=== PATIENT | male | born 1960 | race Caucasian/White ===

== ENCOUNTER 2025-02-19 16:22 | Emergency (ER) | payer OTHER, MEDICAID ==
[~2025-02-19] VITALS: Ht 182.9 cm; Wt 81.8 kg
[2025-02-19] MEDS: SODIUM CHLORIDE 0.9% 1,000 ML IV ONE (16:45)
--- NOTE | 2025-02-19 16:53 | ED.PDOC ---
GI ASSESSMENT HPI Comments 64-year-old male who presents to the ED via EMS for c/c of abdominal pain Patient states he has been having abdominal pain for the past 4 days and states he has been having diarrhea for the past 2 days The patient states the abdominal pain is in upper abdomen periumbilical constant nonradiating with no associated exacerbating or relieving factors Patient is that he has been having 3 loose bowel movements daily for the past 2 days and states the diarrhea started out brown but states it as since turned black after he started using Pepto-Bismol. Most recently he took Pepto-Bismol earlier today. Patient otherwise denies fever cough chills dysuria hematuria nausea or associated symptoms Patient with the ED has a noted heart rate of 111 but otherwise stable vitals in the ED Patient otherwise denies any other symptoms at this time Past medical history: Diabetes, hypertension, CKD Past surgical history: Denies Medications: Unknown Allergies: Denies Social history: denies ETOH denies tobacco use denies drug use HPI: Poor Historian. REVIEW OF SYSTEMS: CONSTITUTIONAL: Denies acute: fever, diaphoresis, chills, generalized weakness. HEAD: Denies acute: headache, photophobia Eyes: Denies acute: Double vision, vision loss, eye pain, eye discharge. EARS: Denies acute: tinnitus, hearing loss, ear discharge, ear pain, THROAT: Denies acute: sore throat, swelling, difficulty swallowing , pain with swallowing, change in voice. NECK: Denies acute: neck pain, neck swelling, stiff neck. HEART: Denies acute : chest pain, palpitations, LUNGS: Denies acute: SOB, wheezing, cough, hemoptysis ABDOMEN: Denies acute: Nausea, Vomiting, hematemesis, hematochezia SKIN: Denies acute: rash, redness, lesions, itchiness. EXTREMITIES: Denies acute: calf pain, numbness, tingling, weakness, denies pain in extremity. Denies acute: Low back pain. Neuro: Denies acute: focal neurological deficit, motor or sensory focal neurological deficit, tremors, seizure like activity, confusion, dizziness, change in mental status, loss of bowel or bladder function, cauda equina like symptoms. : Denies acute: dysuria, hematuria, flank pain, increase in urinary frequency. PSYCH: Denies acute: hallucination, suicidal ideation, homicidal ideation. PHYSICAL EXAM: General: ----mild----acute distress, awake and alert. Head: normocephalic, atraumatic. Neck: supple, trachea is midline, no swelling. Throat: Normal phonation. Eyes:, no erythema, no purulent discharge, no proptosis, no icterus. Heart: regular rate, regular rhythm, no significant murmur appreciated. Lungs: no apparent respiratory distress, Able to speak in full sentences. No wheezing, no rhonchi, no crackles. No stridors Clear to auscultation bilaterally. Abdomen: Mild generalized tender to palpation, non distended, soft, no guarding, no rebound, + bowel sounds. Neuro: Awake, Alert, oriented to name, self, situation, follows commands GCS=15. Speech is normal. Skin: no petechia, no purpura, no cyanosis, non-pale, not jaundice. Lower extremities: --no - Pitting edema no deformity, no focal swelling, no calf TTP. Makes eye contact. moves all four extremities. Face: no apparent facial droop. Ambulating in the ED independently. ED COURSE: DISCLAIMER: This medical document was created using an electronic medical record system with voice recognition software and computerized dictation system. Although this document has been carefully reviewed, there might still be some phonetic and typographical errors. Occasional wrong-word or "sound-alike" substitutions may have occurred due to the inherent limitations of voice recognition software. These areas are purely typographical due to imperfections of the software programs and do not reflect any compromise in the patient's medical care. Please read the chart carefully and recognize, using context, where these substitutions have occurred. Chief Complaint: Abdominal Pain Time Seen by MD: 17:22 Reviewed Notes: Manager Mobile Notes, Medications Allergies: Coded Allergies: NO KNOWN ALLERGIES (Unverified , 02/19/25) Information Source: Patient, Emergency Med Personnel Mode of Arrival: EMS Past Medical History Surgical History: Denies all surgeries Family History Family History: Reviewed,noncontributory to illness Social History Smoker: Non-Smoker Alcohol: Denies ETOH Use Drugs: Denies Drug Use Lives In: Home Was a procedure done? Was a procedure done?: No GI differential Dx Differential Diagnosis: Other (DDX include but not limited to diverticulitis, colitis, gastroenteritis, acute abdomen, SBO, enteritis, constipation, volvulus, appendicitis, Gallbladder disease, choledocolithiasis, ascending cholangitis, pancreatitis, intraAbdominal mass/neoplasm, hepatitis, UTI, pylonephritis, kidney stone, aneurysm, dissection, Inflammatory bowel disease, gastroparesis, ischemic bowel.) X-Ray, Labs, Meds, VS Vital Signs Date Time Temp Pulse Resp B/P (MAP) Pulse Ox O2 Delivery O2 Flow Rate FiO2 02/19/25 19:49 98 19 95 Room Air* 0 21 02/19/25 19:35 97.7 98 114/91 (99) 95 97.7 02/19/25 17:45 97.9 106 18 113/79 (90) 96 97.9 02/19/25 17:45 106 18 96 Room Air 02/19/25 16:29 98.5 111 16 121/81 95 98.5 Lab Test 02/19/25 18:46 02/19/25 18:41 02/19/25 17:15 Range/Units Sodium Level 142 136-145 mmol/L Potassium Level 4.9 3.5-5.1 mmol/L Chloride Level 108 H 98-107 mmol/L Carbon Dioxide Level 23 20-31 mmol/L Anion Gap 11 5-15 Blood Urea Nitrogen 19 9-23 mg/dL Creatinine 1.58 H 0.700-1.30 mg/dL Glomerular Filtration Rate Calc 48 >90 mL/min BUN/Creatinine Ratio 12.0 10.0-20.0 Serum Glucose 99 74-106 mg/dL Calcium Level 9.2 8.7-10.4 mg/dL Total Bilirubin 0.9 0.2-1.0 mg/dL Aspartate Amino Transferase (AST) 24 13-40 U/L Alanine Aminotransferase (ALT) 29 7-40 U/L Alkaline Phosphatase 95 46-116 U/L Total Protein 6.9 5.7-8.2 g/dL Albumin 4.2 3.2-4.8 g/dL Lipase 34 12-53 U/L Urine Color Yellow Yellow Urine Clarity Turbid H Clear Urine pH 5.5 5.0-9.0 Urine Specific [place] 1.023 1.001-1.035 Urine Protein 1+ H Negative Urine Ketones Negative Negative Urine Blood Negative Negative /uL Urine Nitrite Negative Negative Urine Bilirubin Negative Negative Urine Urobilinogen Normal Negative mg/dL Urine Leukocyte Esterase 1+ Negative /uL Urine RBC <1 0 - 3 /hpf Urine Microscopic WBC 20 H 0-3 /HPF Urine Squamous Epithelial Cells Few <5 /hpf Urine Renal Epithelial Cells Few None Seen /hpf Urine Bacteria Few H None Seen /hpf Urine Hyaline Casts Mod 0 - 2 /lpf Urine Mucus Few None Seen Urine Sperm Present None Seen /hpf Urine Glucose Normal Normal mg/dL White Blood Count 9.3 4.4-10.8 10^3/uL Red Blood Count 6.59 H 4.5-5.90 10^6/uL Hemoglobin 19.3 H 13.5-17.5 g/dL Hematocrit 56.4 H 41.0-53.0 % Mean Corpuscular Volume 85.6 80.0-100.0 fL Mean Corpuscular Hemoglobin 29.4 28.0-32.0 pg Mean Corpuscular Hemoglobin Concent 34.3 32.0-36.0 g/dL Red Cell Distribution Width 14.9 H 11.8-14.3 % Platelet Count 250 140-450 10^3/uL Mean Platelet Volume 10.2 6.9-10.8 fL Neutrophils (%) (Auto) 68.9 37.0-80.0 % Lymphocytes (%) (Auto) 21.3 10.0-50.0 % Monocytes (%) (Auto) 7.3 0.0-12.0 % Eosinophils (%) (Auto) 1.7 0.0-7.0 % Basophils (%) (Auto) 0.8 0.0-2.0 % Neutrophils # (Auto) 6.4 1.6-8.6 10 ^3/uL Lymphocytes # (Auto) 2.0 0.4-5.4 10 ^3/uL Monocytes # (Auto) 0.7 0-1.3 10 ^3/uL Eosinophils # (Auto) 0.2 0-0.8 10 ^3/uL Basophils # (Auto) 0.1 0-0.2 10 ^3/uL Nucleated Red Blood Cells 0.5 % Lactic Acid Level 1.3 0.4-2.0 mmol/L Current Medications Medications (Trade) Dose Ordered Sig/Alejandro Route Start Time Stop Time Status Last Admin Sodium Chloride 1,000 ml @ 1,000 mls/hr Q1H ONCE IV 02/19/25 16:45 02/19/25 17:44 DC 02/19/25 16:45 Pantoprazole Sodium (Protonix) 40 mg ONCE ONCE IV 02/19/25 16:45 02/19/25 16:46 DC 02/19/25 19:40 [place] [address] Ph: [phone] DIAGNOSTIC IMAGING Diagnostic Imaging Report : [id number] Signed PATIENT: GEORGE COLMENARES ACCT: [id number] UNIT: [id number] : 1960 LOC: ER ROOM / BED: / AGE / SEX: 64 / M ADM STATUS: REG ER SERVICE 43 ORDERING PHYSICIAN: DARLENE GUTIERREZ DO PROCEDURE(s): ABPL - CT AB PEL WO CON-NO ORAL OR IV REASON: ABD PAIN DIARRHEA ORDER NUMBER(s): [id number], ACCESSION NUMBER(s): [id number] CLINICAL HISTORY: ABD PAIN DIARRHEA TECHNIQUE: CT of the abdomen and pelvis was performed without IV contrast. This exam was performed according to our departmental dose optimization program. Up-to-date CT equipment and radiation dose reduction techniques are utilized as appropriate. CTDI 16.9 DLP 975 COMPARISON: None FINDINGS: Abdomen/Pelvis: The spleen, pancreas, adrenal glands, gallbladder, lateral, and prostate gland are grossly unremarkable. There is extensive hepatic steatosis. There is minimal right and mild left peripheral renal cortical scarring. Hypodense lesions within the left kidney are incompletely characterized due to lack of IV contrast. The abdominal aorta is normal in course and caliber. There are mild aortic atherosclerotic calcifications. There is no free intraperitoneal air or fluid. There is no enlarged abdominal pelvic lymph node. There is no bowel wall thickening or dilatation. The appendix is not seen, likely surgically absent. Other: The imaged lower thorax demonstrates 3-vessel coronary artery calcifications. There are minimal atelectatic changes at both lung bases. No acute osseous abnormality is evident. Impression: No acute noncontrast CT abnormality of the abdomen or pelvis. Extensive hepatic steatosis. 3-vessel coronary artery calcifications. lecystectomy ATED BY: CLIFFORD DE LA CRUZ MD DICTATED DATE/TIME: 02/19/251806 SIGNED BY: CLIFFORD DE LA CRUZ MD SIGNED DATE/TIME: 02/19/251806 CC: Time of 1ST Reevaluation: 20:46 Reevaluation 1ST: N/A Patient Education/Counseling: Diagnosis, Treatment Family Education/Counseling: No Family Present Comments MDM: patient presented with the above HPI.---abdominal pain/diarrhea---workup was initiated. patient was found with the above mentioned diagnosis. the following medications were ordered: please refer to order lists of meds and tests obtained by myself Dr. Gutierrez. Patient ED course and VS have been stabilized. Patient has been reassessed in the ED and remained in a stable condition. Pertinent incidental findings were discussed with the patient and/or family. Patient/family voices understanding and is agreeable with plan. Patient has been observed in the ED adequate length of time to insure improvement/stability. Escalation of care considered: Consideration of escalation to observation or admission Patient was unable to provide us with a stool sample. Patient was found with a UTI. The patient was given Cipro for UTI and coverage for possible infectious diarrhea Patient was DISCHARGED home in a stable condition. All the reports of any imaging studies that were ordered by myself were reviewed by myself. SEPSIS Sepsis Screen Date sepsis recognized/suspect: Feb 19, 2025 Time Sepsis recognized/suspect: 1628 Recent Procedure: No On Antibiotic Therapy: No Respiratory Rate >20: No Heart Rate >90: Yes Temp<36 C (96.8 F) or >38.3 C: No SBP <90 or MAP <65 mmHG: No New Acute Mental Status Change: No Is the patient on CPAP, BIPAP,: No Physician Orders Education Program Associate (02/19/25 ) Stool Wbc (02/19/25 16:44) Stool Occult Blood (02/19/25 16:44) Ova & Parasite Exam (02/19/25 16:44) Clostridium Difficile Toxin (02/19/25 16:44) Ct Ab Pel Wo Con-No Oral Or Iv (02/19/25 16:44) Vital Signs Date Time Temp Pulse Resp B/P (MAP) Pulse Ox O2 Delivery O2 Flow Rate FiO2 02/19/25 19:49 98 19 95 Room Air* 0 21 02/19/25 19:35 97.7 98 114/91 (99) 95 97.7 02/19/25 17:45 97.9 106 18 113/79 (90) 96 97.9 02/19/25 17:45 106 18 96 Room Air 02/19/25 16:29 98.5 111 16 121/81 95 98.5 Laboratory Tests Test 02/19/25 17:15 Lactic Acid Level 1.3 mmol/L (0.4-2.0) White Blood Count 9.3 10^3/uL (4.4-10.8) Medications Medications Dose Ordered Sig/Alejandro Route Start Time Stop Time Status Last Admin Dose Admin Pantoprazole Sodium 40 mg ONCE ONCE IV 02/19/25 16:45 02/19/25 16:46 DC 02/19/25 19:40 Sodium Chloride 1,000 ml @ 1,000 mls/hr Q1H ONCE IV 02/19/25 16:45 02/19/25 17:44 DC 02/19/25 16:45 Departure 1 Departure Time of Disposition: 19:57 Impression: Primary Impression: Diarrhea Additional Impressions: Abdominal pain UTI (urinary tract infection) Black stool Disposition: HOME / SELF CARE / HOMELESS Condition: Stable Additional Instructions: Additional instructions: Please read all instructions provided in this packet carefully. You MUST follow-up with your primary care/family doctor in 1 to 2 days. If you are unable to see your primary care/family doctor, please return to our emergency room for re-assessment and re-evaluation in 1 to 2 days. Return to the emergency room here in our facility or to the nearest ER [facility] if your symptoms change or worsen. CONSULTATIONS: you MUST Follow-up for consultation as soon as possible with: --gastroenterology in 1-2 days. Please call for appointment. You MUST call the consultants office yourself to make an appointment. You may need to arrange that through your insurance and/or your primary/family doctor. If you are unable to see the consultant rn in 1 to 2 days, you must return to our emergency room (or any other ER of your choice) for re-assessment and re- evaluation. Adequate fluid hydration. Although you have been discharged from the Emergency Department, this does not mean that you have a "clean bill of health". No definitive diagnosis for your symptoms has been made today. It is possible that you are in the process of developing a serious illness. This is why you must return to the ED without fail if any new or worsening symptoms develop. Stopped taking Pepto-Bismol. Avoid fatty greasy spicy food. Avoid caffeinated products. Avoid NSAIDs. Below is a copy of your radiological report for follow up: [facility] [address] [facility] [address] Ph: [phone] DIAGNOSTIC IMAGING Diagnostic Imaging Report : [id number] Signed PATIENT: GEORGE COLMENARES ACCT: [id number] UNIT: [id number] : 1960 LOC: ER ROOM / BED: / AGE / SEX: 64 / M ADM STATUS: REG ER SERVICE 1644 ORDERING PHYSICIAN: DARLENE GUTIERREZ DO PROCEDURE(s): ABPL - CT AB PEL WO CON-NO ORAL OR IV REASON: ABD PAIN DIARRHEA ORDER NUMBER(s): [id number], ACCESSION NUMBER(s): [id number] CLINICAL HISTORY: ABD PAIN DIARRHEA TECHNIQUE: CT of the abdomen and pelvis was performed without IV contrast. This exam was performed according to our departmental dose optimization program. Up-to-date CT equipment and radiation dose reduction techniques are utilized as appropriate. CTDI 16.9 DLP 975 COMPARISON: None FINDINGS: Abdomen/Pelvis: The spleen, pancreas, adrenal glands, gallbladder, lateral, and prostate gland are grossly unremarkable. There is extensive hepatic steatosis. There is minimal right and mild left peripheral renal cortical scarring. Hypod ense lesions within the left kidney are incompletely characterized due to lack of IV contrast. The abdominal aorta is normal in course and caliber. There are mild aortic atherosclerotic calcifications. There is no free intraperitoneal air or fluid. There is no enlarged abdominal pelvic lymph node. There is no bowel wall thickening or dilatation. The appendix is not seen, lik polina surgically absent. Other: The imaged lower thorax demonstrates 3-vessel coronary artery calcifications. There are minimal atelectatic changes at both lung bases. No acute osseous abnormality is evident. Impression: No acute noncontrast CT abnormality of the abdomen or pelvis. Extensive hepatic steatosis. 3-vessel coronary artery calcifications. lecystectomy ATED BY: CLIFFORD DE LA CRUZ MD DICTATED DATE/TIME: 02/19/251806 SIGNED BY: CLIFFORD DE LA CRUZ MD SIGNED DATE/TIME: 02/19/251806 CC: Discharged With: Self Critical Care Note Critical Care Time?: No I personally scribed for DARLENE GUTIERREZ DO ([facility]) on 02/19/25 at 16:53. El ectronically submitted by Wali Castillo ([facility] I personally scribed for DARLENE GUTIERREZ DO ([email or web address]) on 02/19/25 at 17:23. Electronically submitted by Wali Castillo ([facility] I personally scribed for DARLENE GUTIERREZ DO ([email or web address]) on 02/19/25 at 20:32. Electronically submitted by Wali Castillo ([facility] DARLENE GUTIERREZ DO Feb 19, 2025 16:53
[2025-02-19 17:42] LABS: Nucleated Red Blood Cells % 0.5 %
[2025-02-19 17:44] LABS: Hemoglobin 19.3 g/dL (13.5-17.5); Mean Corpuscular Hemoglobin 29.4 pg (28.0-32.0); Mean Corpuscular Volume 85.6 fL (80.0-100.0)
[2025-02-19 17:57] LABS: Hematocrit 56.4 % (41.0-53.0)
--- NOTE | 2025-02-19 18:10 | DVH ---
CLINICAL HISTORY: ABD PAIN DIARRHEA TECHNIQUE: CT of the abdomen and pelvis was performed without IV contrast. This exam was performed ac cording to our departmental dose optimization program. Up-to-date CT equipment and radiation dose red uction techniques are utilized as appropriate. CTDI 16.9 DLP 975 COMPARISON: None FINDINGS: Abdomen/Pelvis: The spleen, pancreas, adrenal glands, gallbladder, lateral, and prostate gland are grossly unremarkab le. There is extensive hepatic steatosis. There is minimal right and mild left peripheral renal cortical scarring. Hypodense lesions within the left kidney are incompletely characterized due to lack of IV contrast. The abdominal aorta is normal in course and caliber. There are mild aortic atherosclerotic calcificat ions. There is no free intraperitoneal air or fluid. There is no enlarged abdominal pelvic lymph node. There is no bowel wall thickening or dilatation. The appendix is not seen, likely surgically absent. Other: The imaged lower thorax demonstrates 3-vessel coronary artery calcifications. There are minimal atele ctatic changes at both lung bases. No acute osseous abnormality is evident. Impression: No acute noncontrast CT abnormality of the abdomen or pelvis. Extensive hepatic steatosis. 3-vessel coronary artery calcifications. lecystectomy
[2025-02-19 18:57] LABS: Urine Protein, UAD 1+ (Negative)
[2025-02-19 19:35] VITALS: BP 114/91; TEMP 97.7
[2025-02-19 19:38] LABS: Alanine Aminotransferase 29 U/L (7-40); Albumin 4.2 g/dL (3.2-4.8); Alkaline Phosphatase 95 U/L (46-116); Anion Gap 11 (5-15); BUN/Creatinine Ratio 12.0 (10.0-20.0); Bilirubin, Total 0.9 mg/dL (0.2-1.0); Blood Urea Nitrogen 19 mg/dL (9-23); Calcium 9.2 mg/dL (8.7-10.4); Carbon Dioxide 23 mmol/L (20-31); Glucose 99 mg/dL (74-106); Potassium 4.9 mmol/L (3.5-5.1); Sodium 142 mmol/L (136-145); Total Protein 6.9 g/dL (5.7-8.2)
[2025-02-19] MEDS: PANTOPRAZOLE 40 MG/10 ML VIAL INJ IV ONE (19:40)
[2025-02-19 19:41] LABS: Chloride 108 mmol/L (98-107)
[2025-02-19 19:49] VITALS: PULSE 98; RESP 19; O2SAT 95
[2025-02-19 19:51] LABS: Lipase 34 U/L (12-53)
[2025-02-19] MEDS: CIPROFLOXACIN 400MG/200ML 200 ML IV ONE (20:53)
[2025-02-19] MEDS ORDERED: LEVO500T91 PO (20:58)
== END 2025-02-19 22:06 | disposition home or self-care (01) ==
LOC: EDUNIT# 16:22 → EDBD 16:22 → ER 16:22
DX: N39.0 Urinary tract infection, site not specified (principal); K92.1 Melena; R19.7 Diarrhea, unspecified; I12.9 Hypertensive chronic kidney disease with stage 1 through stage 4 chronic kidney disease, or unspecified chronic kidney disease; E11.22 Type 2 diabetes mellitus with diabetic chronic kidney disease; N18.9 Chronic kidney disease, unspecified
CPT/HCPCS: 36415; 74176; 80053; 81001; 83605; 83690; 85025; 96361; 96365; 96375; 99285; J0744; J2470; J7030